=== PATIENT | male | born 1990 | race Caucasian/White ===

== ENCOUNTER 2022-05-24 04:33 | Emergency (ER) | payer MEDICAID ==
[~2022-05-24] VITALS: Ht 170.2 cm; Wt 68.0 kg
[~2022-05-24 04:33] MED LIST: ESCI-7 PO; GABA-532 PO; IBUP-2028 PO; LAM25 PO; ZONI100C34 PO
[2022-05-24 05:28] LABS: BASOPHILS % 0.5 % (0.0-2.0); HEMATOCRIT. 39.8 % (42.0-52.0); HEMOGLOBIN. 13.4 g/dL (14.0-18.0); LYMPHOCYTES % 33.3 % (20.0-50.0); MEAN CORPUSCULAR HEMOGLOBIN 31.2 pg (28.0-32.0); MEAN CORPUSCULAR VOLUME 92.2 fL (80.0-94.0); MEAN PLATELET VOLUME 8.4 fl (7.4-10.4); MONOCYTES % 10.8 % (2.0-8.0); NEUTROPHILS % 51.4 % (40.0-76.0); PLATELET 242 x1000/uL (130-400); RED BLOOD CELL COUNT 4.31 mill/uL (4.7-6.1); RED CELL DISTRIBUTION WIDTH 13.1 % (11.6-14.6)
[2022-05-24 05:35] LABS: CHLORIDE 104 mEq/L (98-107)
[2022-05-24 05:49] LABS: CARBAMAZEPINE < 0.5 ug/mL (4-12); ETHANOL BLOOD < 10 mg/dL; PHENOBARBITAL < 2.1 ug/mL (15.0-40.0)
[2022-05-24 06:30] VITALS: BP 128/90
== END 2022-05-24 07:24 | disposition home or self-care (01) ==
LOC: ER 04:33
DX: G40.909 Epilepsy, unspecified, not intractable, without status epilepticus (principal); I10 Essential (primary) hypertension
CPT/HCPCS: 36415; 80053; 80156; 80165; 80184; 80185; 80320; 82962; 85025; 99283; G0480